=== PATIENT | female | born 1970 | race Caucasian/White ===

== ENCOUNTER 2019-08-10 23:05 | Inpatient (IN) | payer MEDICAID, OTHER ==
[~2019-08-10] VITALS: Ht 157.5 cm; Wt 54.4 kg
--- NOTE | 2019-08-10 23:20 | NUR ---
Dr. Hammond at bedside for MSE
[2019-08-10] MEDS ORDERED: PIPERACILLIN SODIUM/TAZOBACTAM 3.375 G in IV DEXTROSE 5% 50 ML IV ONE (23:45)
[2019-08-10] MEDS ORDERED: VANCOMYCIN IV 1,000 MG in IV DEXTROSE 5% 250 ML IV ONE (23:45)
[2019-08-10] MEDS ORDERED: LIDOCAINE HCL 2% 20 ML VIAL TP ONE (23:45)
[2019-08-10] MEDS ORDERED: IV NORMAL SALINE 1000 ML BAG IV ONE (23:45)
[2019-08-11] MEDS ORDERED: PIPERACILLIN/TAZOBACTAM/D5W 50 ML IV ONE (00:14)
[2019-08-11 00:31] LABS: BASOPHILS % (AUTO) 0.2 % (0.0-2.0); EOSINOPHILS # (AUTO) 0.1 K/uL (0.0-0.7); EOSINOPHILS % (AUTO) 0.8 % (0.0-7.0); HEMATOCRIT 33.2 % (31.2-41.9); HEMOGLOBIN 11.1 g/dL (10.9-14.3); LYMPHOCYTES # (AUTO) 1.8 K/uL (20.0-40.0); MEAN CORPUSCULAR HEMOGLOBIN 27.7 uug (24.7-32.8); MEAN CORPUSCULAR HGB CONC 33 g/dL (32.3-35.6); MEAN CORPUSCULAR VOLUME 83.1 fL (75.5-95.3); MONOCYTES # (AUTO) 0.9 K/uL (2.0-10.0); MONOCYTES % (AUTO) 5.8 % (0.0-11.0); NEUTROPHILS # (AUTO) 12.3 K/uL (1.8-8.9); NEUTROPHILS % (AUTO) 81.2 % (38.5-71.5); PLATELET COUNT (AUTO) 440 K/uL (179-408); WHITE BLOOD COUNT (AUTO) 15.1 K/uL (3.8-11.8)
--- NOTE | 2019-08-11 00:35 | NUR ---
Xray at bedside
[2019-08-11 00:38] LABS: CREATININE 0.7 mg/dL (0.6-1.3); POTASSIUM 3.9 mmol/L (3.5-5.1)
[2019-08-11 00:51] LABS: BILIRUBIN,DIRECT 0.1 mg/dL (0.0-0.2); BILIRUBIN,TOTAL 0.2 mg/dL (0.2-1.0); TOTAL PROTEIN, SERUM 7.9 g/dL (6.4-8.2)
[2019-08-11] MEDS ORDERED: VANCOMYCIN IV 200 ML ONE (00:52)
--- NOTE | 2019-08-11 01:30 | NUR ---
Pt. admitted to Med/Surg , under care of Dr. Juan Belongs List completed
--- NOTE | 2019-08-11 02:30 | NUR ---
Patient is in the room sleeping comfortably. No distress noted.
--- NOTE | 2019-08-11 02:50 | NUR ---
notified Drake that patient is in the room, awaiting orders from .
--- NOTE | 2019-08-11 05:54 | NUR ---
Still no orders from Dr Juan, notified hi, again. Promised to put the orders soon.
[2019-08-11] MEDS ORDERED: MAGNESIUM HYDROXIDE 30 ML LIQUID UDC PO PRN (07:15)
[2019-08-11] MEDS ORDERED: ACETAMINOPHEN 325 MG TABLET PO PRN (07:15)
[2019-08-11] MEDS ORDERED: ZOLPIDEM 5 MG TABLET PO PRN (07:15)
[2019-08-11] MEDS ORDERED: ONDANSETRON 4 MG/2 ML VIAL IV PRN (07:15)
--- NOTE | 2019-08-11 07:15 | NUR ---
No admission orders at the change of shift. Endorsed report to the day shift RN, patient is sleeping, no distress noted.
--- NOTE | 2019-08-11 07:30 | NUR ---
Patient calm and comfortable upon initial assessment with no signs of distress; patient will continue to be monitored.
--- NOTE | 2019-08-11 09:05 | NUR ---
Clinical pharmacy note-Vancomycin dosing per pharmacy Subjective: To start Vancomycin dosing on this patient for cellulitis Objective: BUN/Scr 14/0.7 WBC 15.1 Temp 98.2 Ht 157.48cm Wt 54.431kg Assessment/Plan: Patient had 1g today at 0102. Will continue Vancomycin 1gram IV every 15h hrs(2nd dose today at 1600) and draw trough by 4th dose(not ordered yet) for expected trough around 15. Will monitor daily.
[2019-08-11 11:42] VITALS: BP 127/69
[2019-08-11] MEDS: IV NS 1000 ML 1,000 ML IV PRN (11:50)
[2019-08-11] MEDS ORDERED: PIPERACILLIN SODIUM/TAZOBACTAM 3.375 G in IV DEXTROSE 5% 50 ML IV SCH (12:00)
[2019-08-11 15:47] VITALS: BP 136/85
[2019-08-11] MEDS ORDERED: LIDOCAINE HCL 1% 20 ML VIAL MC ONE (16:00)
[2019-08-11] MEDS: VANCOMYCIN IV 1,000 MG in IV DEXTROSE 5% 250 ML IV SCH (16:49)
--- NOTE | 2019-08-11 18:23 | NUR ---
Patient withdrawn and sleepy through out shift; patient could not be given 1200 Zosyn as patient had hardening of veins due to drug abuse ;Md placed orders for midline ; patient with midline in right upper arm ; patient medication compliant. Patient with no signs of distress and stable vital signs; patient will continue to be monitored and Report given to oncoming nurse.
[2019-08-11] MEDS: PIPERACILLIN SODIUM/TAZOBACTAM 3.375 G in IV DEXTROSE 5% 50 ML IV SCH ×2 (19:26→23:04)
[2019-08-12] MEDS ORDERED: PIPERACILLIN SODIUM/TAZO 3.375 GM VIAL ONE (04:19)
[2019-08-12] MEDS: PIPERACILLIN SODIUM/TAZOBACTAM 3.375 G in IV DEXTROSE 5% 50 ML IV SCH ×3 (05:48→18:18)
[2019-08-12 06:33] LABS: BASOPHILS # (AUTO) 0.1 K/uL (0.0-8.0); BASOPHILS % (AUTO) 0.6 % (0.0-2.0); EOSINOPHILS # (AUTO) 0.2 K/uL (0.0-0.7); EOSINOPHILS % (AUTO) 1.8 % (0.0-7.0); HEMATOCRIT 33.4 % (31.2-41.9); HEMOGLOBIN 11.4 g/dL (10.9-14.3); LYMPHOCYTES # (AUTO) 1.7 K/uL (20.0-40.0); LYMPHOCYTES % (AUTO) 16.8 % (20.5-51.5); MEAN CORPUSCULAR HEMOGLOBIN 28.5 uug (24.7-32.8); MEAN CORPUSCULAR HGB CONC 34 g/dL (32.3-35.6); MEAN CORPUSCULAR VOLUME 83.2 fL (75.5-95.3); MONOCYTES # (AUTO) 0.8 K/uL (2.0-10.0); MONOCYTES % (AUTO) 8.1 % (0.0-11.0); NEUTROPHILS # (AUTO) 7.4 K/uL (1.8-8.9); NEUTROPHILS % (AUTO) 72.7 % (38.5-71.5); PLATELET COUNT (AUTO) 541 K/uL (179-408); RED BLOOD CELL COUNT(AUTO) 4.01 MIL/uL (3.63-4.92); WHITE BLOOD COUNT (AUTO) 10.1 K/uL (3.8-11.8)
[2019-08-12] MEDS: VANCOMYCIN IV 1,000 MG in IV DEXTROSE 5% 250 ML IV SCH ×2 (06:36→22:25)
[2019-08-12 06:48] LABS: CREATININE 0.7 mg/dL (0.6-1.3); PHOSPHOROUS 4.3 mg/dL (2.5-4.9); POTASSIUM 4.1 mmol/L (3.5-5.1)
[2019-08-12 06:58] LABS: THYROID STIMULATING HORMONE 1.432 mIU/mL (0.358-3.740)
--- NOTE | 2019-08-12 07:30 | NUR ---
Patient calm and comfortable with no signs of distress and stable ; patient will continue to be monitored.
--- NOTE | 2019-08-12 07:30 | NUR ---
Patient calm and comfortable upon initial assessment; patient will continue to be monitored.
[2019-08-12] MEDS: IV NS 1000 ML 1,000 ML IV PRN ×2 (08:01→23:33)
--- NOTE | 2019-08-12 09:12 | NUR ---
Clinical pharmacy note-Vancomycin dosing per pharmacy Subjective: To continue Vancomycin dosing on this 49 yo female patient for L arm cellulitis with abscess s/p drainage (h/o IV heroin abuse) Objective: BUN/Scr 11/0.7 WBC 10.1 Temp 97.9 Ht 157.48cm Wt 54.431kg Assessment/Plan: Will continue same dose of Vancomycin 1gram IV every 15h hrs for today. 3rd dose today at 0630) and draw trough by 4th dose(ordered for 08/12 at 2130- RN has been informed to hold 2200 dose if vanco trough level is above 20 mcg/ml). Will monitor daily.
[2019-08-12 11:08] VITALS: BP 138/72
[2019-08-12] MEDS: MORPHINE SULFATE 2 MG/1 ML DISP.SYRIN IV PRN ×3 (11:09→20:23)
--- NOTE | 2019-08-12 11:24 | NUR ---
Wind Energy Engineer Consultation: 10:15am: SW met with patient, who was in bed in her assigned hospital room. Patient is awake, alert, oriented, receptive to talking to this SW. Patient was cooperative and engaged in conversation with this SW, answering appropriately to all the questions that this SW asked. Patient is a 49 year old female who came in to the ED for abscess/left arm cellulitis. Patient states being homeless for 1 year now, since the passing of her father. Patient states that she and her fiance Agusto sometimes stay with her friend Yuriy Garcia in [place], but sometimes stay in a tent on the street. Patient states that her mother lives in [place]--[address] [place] [address]--and that this is patient's mailing address. Patient states that her mother suffers from Dementia. Patient has a 22 year old daughter, Sheryl Cormier, who lives with a friend. Patient states that she has regular contact with her daughter. Patient stated that her daughter, her fiance, and her friend Yuriy are all aware of her current hospitalization. Patient states that her daughter and her mother are not able to assist the patient with housing. Patient receives SSI income, $980, however states that she did not get her money for this month. SW provided patient with the location of the nearest [employer] office, [address] [place] [address], , and SW suggested for patient to contact, or visit, the office in order to clarify the status of her monthly SSI income. SW also suggested for patient to inquire about [employer] benefits through [employer]. Patient expressed understanding and agreement. 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 Although patient's medical records indicate patient uses IV heroin, patient denied using heroin and stated "I only use crystal meth". Patient denied alcohol use. Patient denied past or current SI. Patient stated that her fiance wants her to quit using drugs and patient expressed wanting to quit too, however stated "I've been using it for so long, it's so hard". SW discussed substance abuse treatment programs with the patient, and patient was receptive to this information and in agreement for SW to provide her with resources. SW also discussed other homeless community resources with the patient, such as homeless shelters and food perez, and patient was receptive to receiving information on these resources too. SW provided patient with the homeless resource packet, which includes the following resources: the [phone] [facility] Winter Detention Program that provides locations of the winter shelters in Service Areas [address] thru [place], along with locations and times where individuals will get picked up by the shelters; the [facility] homeless directory which provides a list of places that individuals can go to throughout the week for hot meals, sack lunches, food pantries, and showers; a list of mental health clinics: [facility] [address] [place] [address], ; [facility] [address] [place] [address], ; [facility] [address] [place] [address], ; a list of medical clinics: [facility] [address] [facility] [address], [place]. [place], ; [facility] [address] [facility], [address] [place] [address]; [facility] [address] [place] [address], ; and a list of substance abuse programs: [facility] Substance Abuse Self-helpline ; [facility] ; [facility] ; [facility] ; [facility] ; [facility] [phone]; [facility] [phone]. SW also provided patient with information on locations of pharmacies. Patient thanked ERENSTINA for all the resources provided. ERNESTINA then met with case finishing machine adjuster Daysi and discussed patient's case and informed her of the resources that this SW has provided. Case Management to assist patient with discharge planning. No further SS interventions needed at this time, however SW is available to the patient, if needed.
--- NOTE | 2019-08-12 11:31 | NUR ---
WOUND CARE CONSULT: PT PRESENTS WITH LEFT SHOULDER WOUND, S/P INCISION AND DRAINAGE WELL OPEN WOUND TO LEFT ARM, PRESENT ON ADMISSION. RECOMMENDATIONS MADE FOR WOUND CARE AND SKIN PROTECTION. DISCUSSED WITH NURSING STAFF. RECOMMEND SURGICAL FOLLOW UP. SPOKE WITH GOVERNOR ASSEMBLER REGARDING THIS AND PER NURSING STAFF, CALLED SURGEON DIRECTLY. WILL SEE PRN. IN AGREEMENT WITH PLAN OF CARE. PT IS CONTINENT AND INDEPENDENT WITH BED MOBILITY. Addendum: 08/12/19 at 1133 by GIDEON ROGERS RN Amended: Links added.
[2019-08-12 15:36] VITALS: BP 135/60
--- NOTE | 2019-08-12 18:45 | NUR ---
Patient sleepy throughout shift and with no signs of distress ; patient medication compliant; patient requested pain medication patient given prn medication; patient seen by wound consult surgery and requested for aqua pad to placed around patient wound on arm. aqua pad placed around patient arm with dressing. Patient otherwise with stable vital sings. Report given to oncoming nurse.
[2019-08-13] MEDS: PIPERACILLIN SODIUM/TAZOBACTAM 3.375 G in IV DEXTROSE 5% 50 ML IV SCH ×4 (00:33→17:15)
--- NOTE | 2019-08-13 03:10 | NUR ---
patient pulled out midline. nursing supervisor cloth winding will order a new midline. multiple PIV attempts unsuccessful. will be placed later today.
--- NOTE | 2019-08-13 06:13 | NUR ---
zosyn not administered this morning. no midline available. multiple attempts to insert PIV. patient will receive midline today when available. will resume abx. charge and nursing supervisor shellfish farming aware of situation.
--- NOTE | 2019-08-13 06:15 | NUR ---
patients v/s stable and no signs of acute distress. safety and comfort measures provided. wound care provided. will continue to monitor and endorse to morning nurse.
[2019-08-13 06:23] LABS: BASOPHILS % (AUTO) 0.4 % (0.0-2.0); EOSINOPHILS # (AUTO) 0.1 K/uL (0.0-0.7); EOSINOPHILS % (AUTO) 1.1 % (0.0-7.0); HEMATOCRIT 35.3 % (31.2-41.9); HEMOGLOBIN 11.5 g/dL (10.9-14.3); LYMPHOCYTES % (AUTO) 20.7 % (20.5-51.5); MEAN CORPUSCULAR HEMOGLOBIN 27.5 uug (24.7-32.8); MEAN CORPUSCULAR HGB CONC 33 g/dL (32.3-35.6); MEAN CORPUSCULAR VOLUME 84.2 fL (75.5-95.3); MONOCYTES # (AUTO) 0.6 K/uL (2.0-10.0); MONOCYTES % (AUTO) 6.1 % (0.0-11.0); NEUTROPHILS # (AUTO) 6.8 K/uL (1.8-8.9); NEUTROPHILS % (AUTO) 71.7 % (38.5-71.5); PLATELET COUNT (AUTO) 559 K/uL (179-408); RED BLOOD CELL COUNT(AUTO) 4.19 MIL/uL (3.63-4.92); WHITE BLOOD COUNT (AUTO) 9.5 K/uL (3.8-11.8)
[2019-08-13 06:27] LABS: CREATININE 0.8 mg/dL (0.6-1.3); PHOSPHOROUS 4.1 mg/dL (2.5-4.9)
[2019-08-13] MEDS: MORPHINE SULFATE 2 MG/1 ML DISP.SYRIN IV PRN (10:00)
[2019-08-13 11:58] VITALS: BP 134/58
[2019-08-13] MEDS: VANCOMYCIN IV 1,000 MG in IV DEXTROSE 5% 250 ML IV SCH (13:47)
--- NOTE | 2019-08-13 14:43 | NUR ---
Clinical pharmacy note-Vancomycin dosing per pharmacy Subjective: To continue Vancomycin dosing on this 49 yo female patient for L arm cellulitis with abscess s/p drainage (h/o IV heroin abuse) Objective: BUN/Scr 10/0.8 WBC 9.5 Temp 97.9 Ht 157.48cm Wt 54.431kg Vancomycin trough 2/5 at 2150(ordered at 2130 but delayed 20 min):7.4 Assessment/Plan: Since Vancomycin trough is under the therapeutic range, will increase dose to 1000mg IV every 11hrs(2nd dose 2/ at 0000) and draw trough by 4th dose(not ordered yet) for expected trough around 15. Will monitor daily.
[2019-08-13 16:15] VITALS: BP 116/73
[2019-08-14] MEDS ORDERED: VANCOMYCIN IV 1,000 MG in IV DEXTROSE 5% 250 ML IV SCH ×2
== END 2019-08-13 22:00 | disposition left against medical advice (07) | DRG 720 ==
LOC: ER 23:05 → MEDSURG3 08-11 01:42
PROVIDERS: ADMIT Internal Medicine; ATTEND Student in an Organized Health Care Education/Training Program
PROC: 0H9CXZZ Drainage of Left Upper Arm Skin, External Approach (ICD-10-PCS; principal; 2019-08-11)
PROC: 05HB33Z Insertion of Infusion Device into Right Basilic Vein, Percutaneous Approach (ICD-10-PCS; principal; 2019-08-11)
PROC: 05HB33Z Insertion of Infusion Device into Right Basilic Vein, Percutaneous Approach (ICD-10-PCS; 2019-08-13)
DX: A41.9 Sepsis, unspecified organism (principal); Q61.3 Polycystic kidney, unspecified; E44.0 Moderate protein-calorie malnutrition; E87.1 Hypo-osmolality and hyponatremia; L03.114 Cellulitis of left upper limb; L02.818 Cutaneous abscess of other sites; Z59.0 Homelessness; F11.10 Opioid abuse, uncomplicated
CPT/HCPCS: 36415; 70030-TC; 71045; 83605; 83690; 83735; 84100; 84443; 85025; 87040; 87400; 93005; A4663; G0378; J2270; J2543; J3370; J3490; J7030; J7060